=== PATIENT | male | born 1980 | race Two or more races ===

== ENCOUNTER → 2020-11-08 | Outpatient (CLI) | payer BC ==
--- NOTE | 2020-11-09 07:38 | MR ---
EXAMINATION TYPE: MR cervical spine wo con DATE OF EXAM: 11/08/2020 COMPARISON: None HISTORY: Neck pain x25 years CONTRAST: Performed utilizing 0 mL intravenous Gadavist gadolinium contrast. TECHNIQUE: Multiplanar multiecho imaging on a 3.0 Janessa magnet is performed through the cervical spin e. FINDINGS: The craniovertebral junction is normal. Vertebral body alignment is normal. C7-T1: No focal disc herniation or significant disc bulge is evident. No spinal canal stenosis or n eural foraminal stenosis is present. C6-7: Broad-based disc bulge is present greater in the right paracentral region with mild anterior th ecal sac compression. No AP spinal canal stenosis present. Neural foramen are patent.. C5-6: Left paracentral broad-based disc bulge has mild to moderate anterior thecal sac compression. T his comes in close approximation spinal cord. Some cord contact and deformity may be present. No spin al canal stenosis is present. Neural foramen are patent.. C4-5: Mild broad-based disc bulge is present with anterior thecal sac contact. No cord contact is yadira dent. Mild uncovertebral joint V6 contributing to mild left and minimal right foraminal narrowing. C3-4: No focal disc herniation or significant disc bulge is evident. No spinal canal stenosis or camilo ral foraminal stenosis is present. C2-3: No focal disc herniation or significant disc bulge is evident. No spinal canal stenosis or camilo ral foraminal stenosis is present. IMPRESSIONS: 1. Left paracentral disc bulge with moderate anterior thecal sac compression or cord contact and mild cord flattening C5-6 level. 2. Disc bulging C6-7 and C4-5 without cord contact or spinal canal stenosis.
== END | disposition home or self-care (01) ==
LOC: RADMRIMAIN 12:12
PROVIDERS: ATTEND Family Medicine
DX: M54.12 Radiculopathy, cervical region (principal)
CPT/HCPCS: 72141

== ENCOUNTER → 2020-12-06 | Outpatient (CLI) | payer BC ==
[2020-12-06 09:17] VITALS: BP 138/90; PULSE 70; RESP 18; TEMP 98.4
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
== END | disposition home or self-care (01) ==
LOC: PNWHC3 08:50
DX: M79.18 Myalgia, other site (principal); M47.812 Spondylosis without myelopathy or radiculopathy, cervical region
CPT/HCPCS: 99211